=== PATIENT | female | born 2000 | race Caucasian/White ===

== ENCOUNTER 2024-07-28 17:26 | Emergency (ER) | payer MEDICAID, SELFPAY ==
[2024-07-28 17:29] VITALS: BP 118/87; PULSE 114; RESP 16; TEMP 36.8; O2SAT 100; BMI 16.3
--- NOTE | 2024-07-28 17:46 | EKG12_ITS ---
Test Reason : CP Blood Pressure : */* mmHG Vent. Rate : 106 BPM Atrial Rate : 105 BPM P-R Int : 92 ms QRS Dur : 80 ms QT Int : 340 ms P-R-T Axes : 60 85 -20 degrees QTcB Int : 451 ms Sinus tachycardia Nonspecific ST/T wavechanges Abnormal ECG Confirmed by Musa Pineda ([id number]), editor publications NICO ALVAREZ ([id number]) on 07/29/2024 9:57:05 AM Referred By: Confirmed By: Musa Pineda
--- NOTE | 2024-07-28 17:48 | ED.VIS.DYS ---
HPI History of Present Illness Chief Complaint: Cough Narrative Narrative: 24-year-old female presents with cough and shortness of breath that she has had for the last week. She denies any fevers or chills, no nausea or vomiting. She states that while she has been sick with upper respiratory infection type symptoms for the last week, over time she has developed left-sided lung problems, stating that it feels like there is mucus building up and bubbling in that area. Additionally, she relates history that last night she accidentally snorted methamphetamine. Patient complains of nasal congestion as well. [facility] Medical History Herpes Bronchospasm Insomnia Allergy/AdvReac Type Severity Reaction Status Date / Time Penicillins (PCN) Allergy Mild Rash Verified 07/28/24 17:28 Surgical History Hx of tonsillectomy Social History Smoking Status: Current every day smoker tobacco type: cigarettes and e-cigarettes ROS ROS ED ROS Narrative Constitutional: No fever, no chills. HEENT: No sore throat. No neck pain. No rhinorrhea. Positive nasal congestion. Cardiovascular: No chest pain. No palpitations. No pedal edema. Respiratory: Positive cough, positive occasional shortness of breath. Gurgling and bubbling in left side of chest, lower lung field. Abdominal: No abdominal pain. No nausea. No vomiting. Genitourinary: No dysuria. No hematuria. Musculoskeletal: No myalgias. No arthralgias. Neurologic: No headaches. No dizziness. No lightheadedness. Skin: No rash. No change in color. Psychiatric: No depression. No anxiety. EXAM Physical Exam Narrative Exam Narrative: Afebrile. Vital signs noted. Nontoxic-appearing. Cardiovascular examination reveals a mild tachycardia at 114 bpm. Lung sounds show prolonged expiratory phase and occasional expiratory wheeze in the bilateral bases left greater than right. No rhonchi. No respiratory distress or tachypnea. Abdomen is soft and nontender with positive bowel sounds. Neurological examination is nonfocal and nonlateralizing. Const Vital Signs: 07/28/24 17:29 07/28/24 17:45 Temperature 98.3 F Temperature Source Oral Pulse Rate 114 H Respiratory Rate 16 Respiratory Effort Short of Breath Respiratory Depth Normal Respiratory Pattern Normal Blood Pressure 118/87 H Blood Pressure Mean 97 Pulse Ox 100 Oxygen Delivery Method Room Air Room Air MDM MDM MDM Narrative Medical decision making narrative: Differential diagnosis includes but not limited to bronchitis versus pneumonia versus pneumothorax. I do feel that her tachycardia may be secondary to recent methamphetamine use. Additionally, there may be some anxiety component to this because in review of her problem list she has had anxiety in the past. EKG will be obtained for the tachycardia. I doubt pulmonary embolism as her pulse ox is 100% on room air without evidence of hypoxia. She has been showing upper respiratory infection type symptoms for the last week. Chest x-ray and 2 views will be obtained to rule out pneumothorax and pneumonia. She was given albuterol MDI 2 puffs inhaled and the remainder dispensed to her. Chest x-ray in 2 views interpreted by myself independently shows no evidence of pneumonia or pneumothorax. I reviewed the radiology report which confirms my independent interpretation. EKG obtained and interpreted by myself independently demonstrates sinus tachycardia at 106 bpm without ectopy or acute ST changes. No STEMI. Upon repeat examination, she states she has an albuterol inhaler previously today, and it did not really help her. I discussed with her obtaining laboratory work, but she declines. Also I discussed the low probability that this is a pulmonary embolism as she has a pulse ox of 100% on room air and her heart rate is 99 to 100 bpm currently. She attributes this to her mistakenly taking amphetamines/methamphetamines last night. I feel she can be discharged to follow-up with her primary care provider. She will use [id number] medications. Return instructions to the emergency department were reviewed. Patient motivated for discharge. Disposition is discharged home in stable condition. History & Record Review Discussion w/independent historian: Patient Radiography Chest X-Ray - ED: 2 View and Read by ED Physician Diagnostic Testing: Clinical Impression(s) from Imaging Studies Chest X-Ray 07/28/24 17:53 IMPRESSION: No radiographic evidence of acute cardiopulmonary disease. Electronically Signed: Guillermo Blanca MD at 18:11 EST , Discharge Plan Triage Chief Complaint: Cough ED Provider: Erik Dick Dx/Rx/DC Orders Clinical Impression: Bronchitis, URI (upper respiratory infection) Instructions: ED Bronchitis with Wheezing (Adult) Primary Care Provider: Care Physician,Roz Primary Referrals: NOT,DEFINED [Non-Staff] - Activity Restrictions/Additional Instructions: Follow-up with your primary care physician. Stop vaping. Use albuterol inhaler as directed. Return with increased difficulty breathing, increased pain, new or worsening symptoms. Print Language: Wolof Disposition Disposition: Home, Self Care
--- NOTE | 2024-07-28 17:53 | RAD_ITS ---
EXAM: XR CHEST, 2 VIEWS CLINICAL INDICATION: cough, sob TECHNIQUE: Frontal and lateral views of the chest. COMPARISON: No relevant prior studies available. FINDINGS: LUNGS AND PLEURAL SPACES: Unremarkable. No consolidation or edema. No pneumothorax. No effusion. HEART: Unremarkable. Cardiac silhouette not enlarged. MEDIASTINUM: Central airways and mediastinal contour are unremarkable. BONES/JOINTS: Unremarkable. No acute fracture. SOFT TISSUES: Unremarkable. RAD/Chest PA and Lateral IMPRESSION: No radiographic evidence of acute cardiopulmonary disease. Electronically Signed: Guillermo Blanca MD at 18:11 EST ,
[2024-07-28] MEDS: Albuterol Sulfate 8 gm Inhaler (60 puffs) 2 PUFF INHALATION (18:07)
== END 2024-07-28 19:19 | disposition home or self-care (01) ==
PROVIDERS: Emergency Provider Emergency Medicine; Visit Provider Emergency Medicine
DX: J40 Bronchitis, not specified as acute or chronic (principal); J06.9 Acute upper respiratory infection, unspecified; F17.210 Nicotine dependence, cigarettes, uncomplicated; F17.290 Nicotine dependence, other tobacco product, uncomplicated
CPT/HCPCS: 71046; 93005; 99284